=== PATIENT | female | born 1995 | race Hispanic/Latino ===

== ENCOUNTER 2024-05-18 08:07 | Emergency (ER) | payer BC ==
[~2024-05-18] VITALS: Ht 162.6 cm; Wt 76.0 kg
[2024-05-18 09:18] VITALS: PULSE 84; RESP 18
[2024-05-18] MEDS: ALBUTEROL/IPRATROPIUM 3 ML NEB NEB ONE (09:18)
[2024-05-18 10:49] VITALS: PULSE 80; RESP 16; TEMP 98.5; O2SAT 100
[2024-05-18] MEDS ORDERED: VENTOLIN HFA18 GM INH (10:52)
[2024-05-18] MEDS ORDERED: PREDNISONE20 MG PO (10:54)
[2024-05-18] MEDS ORDERED: CETIRIZINE HCL10 MG PO (10:56)
== END 2024-05-18 11:10 | disposition home or self-care (01) ==
LOC: FSED 08:12
DX: R05.9 Cough, unspecified (principal); J06.9 Acute upper respiratory infection, unspecified; J98.01 Acute bronchospasm; Z11.52 Encounter for screening for COVID-19
CPT/HCPCS: 0223U; 71046; 83518; 87400; 99283